=== PATIENT | female | born 1990 | race African-American/Black ===

== ENCOUNTER 2016-05-24 08:31 | Emergency (ER) | payer OTHER ==
[2016-05-24 08:41] VITALS: BP 121/89
[2016-05-24] MEDS ORDERED: MORPHINE IM ONE (09:23)
[2016-05-24] MEDS ORDERED: ZOFRAN IM ONE (09:23)
[2016-05-24] MEDS ORDERED: BICILLIN L-A IM ONE (09:23)
--- NOTE | 2016-05-24 09:28 | PROVIDER DOCUMENTATION ---
HPI-EENT General - General Chief Complaint: Toothache Stated Complaint: TOOTHACHE Time Seen by Provider: 05/24/16 09:02 Source: patient Allergies/Adverse Reactions: Patient Allergies Allergy/AdvReac Type Severity Reaction Status Date / Time ibuprofen Allergy Intermediate SWELLING Verified 06/02/15 14:34 Sulfa (Sulfonamide Allergy Intermediate SWELLING Verified 06/02/15 14:34 Antibiotics) latex Allergy Mild ITCHING Verified 06/02/15 14:34 Home Medications: Home Medication List Medication Instructions Recorded Confirmed Last Taken Type Duloxetine [Cymbalta] 60 mg PO DAILY #30 capsule 02/01/15 06/02/15 06/02/15 10: 00 Rx Olanzapine [Zyprexa] 15 mg PO QHS #30 tablet 02/01/15 06/02/15 06/02/15 10:00 Rx Clonazepam [Klonopin] 1 mg PO BID 06/02/15 06/02/15 06/02/15 10:00 History Cyanocobalamin (Vitamin B-12) 2,500 mcg PO DAILY 06/08/15 06/08/15 06/08/15 History [Vitamin B12] Acetaminophen/Diphenhydramine 1 each PO Q6-8H PRN PRN #30 tablet 05/24/16 Unknown Rx [Percogesic 325-12.5 mg Tablet] Amoxicillin [Amoxil] 500 mg PO BID #14 capsule 05/24/16 Unknown Rx Benzocaine 20% Gel [Orajel Maximum 1 applicatn TOP 4XDAY PRN PRN #1 05/24/[address] 20% Gel] tube - History of Present Illness-EENT General Nature of Presenting Problem: This pt presents today c complaints of toothache to the R upper jaw X 3 days. She reports that an "abscess busted" 2 days ago and she has had pain since that time. No fever, chills, n/v/d. no facial cellulitis or swelling. No tongue or throat swelling. EENT Location: reports: dental Quality of Pain: reports: aching Severity: reports: moderate Onset/Duration: reports: 3 days ago Timing: reports: still present Prearrival Treatment: Initiated no prearrival treatment Associated Symptoms: reports: tooth pain Similar Symptoms Previously?: Yes Recently seen or treated by another doctor?: No Review of Systems - Adult - REVIEW OF SYSTEMS - ADULT Constitutional: reports: no symptoms reported. denies: chills, fatique Eyes: reports: no symptoms reported. denies: discharge, dry eyes Ears, Nose, Mouth & Throat: reports: see HPI, mouth/dental pain. denies: ear discharge, ear pain Cardiovascular: reports: no symptoms reported. denies: chest pain, edema Respiratory: reports: no symptoms reported. denies: chronic cough, dyspnea on exertion Gastrointestinal: reports: no symptoms reported. denies: abdominal pain, hematemesis Genitourinary: reports: no symptoms reported. denies: dysuria, discharge Musculoskeletal: reports: no symptoms reported. denies: bone pain, back pain Integumentary: reports: no symptoms reported. denies: hives, hair loss Neurological: reports: no symptoms reported. denies: ataxia, dizziness/vertigo Psychiatric: reports: no symptoms reported. denies: anxiety, anti-depressant use Endocrine: reports: no symptoms reported Hematologic/Lymphatic: reports: no symptoms reported Allergic/Immunologic: reports: no symptoms reported All Other Systems: Reviewed and Negative Past History - Adult - PAST MEDICAL HISTORY-ADULT Review of Records: reports: Old Records Reviewed, Nursing Assessment Review, Medications Reviewed, Social history reviewed & non-contributory. Major Childhood Illnesses: reports: history unknown Cardiovascular: reports: denies history Respiratory: reports: asthma Gastrointestinal: reports: denies history Obstetrical/Gynecological: reports: other (EDC September 05) Genitourinary: reports: denies history Musculoskeletal: reports: other (hx of back pain) Neurological: reports: denies history Psychiatric: reports: depression Endocrine/Immune: reports: denies history Other Conditions: reports: denies history - PRIOR SURGERIES/PROCEDURES Surgical/Procedure History: reports: none - IMMUNIZATION STATUS Childhood Immunizations: UTD Flu Vaccine: See Nurse Assessment Physical Exam- EENT - Physical Exam EENT Initial Vital Signs Reviewed: Yes General Appearance: appears well, alert, no apparent distress Eye Exam: bilateral eye: normal inspection, PERRL, EOMI Nasal Exam: normal inspection Throat Exam: pharynx normal, dental tenderness. negative: excessive drooling, pharynx tenderness, tonsillar exudate, tonsillar swelling Mouth,Throat: 1 - pain; no abscess noted Neck: non-tender, full range of motion, supple, normal inspection. negative: limited range of motion, lymphadenopathy, meningismus Respiratory: chest non-tender, lungs clear, normal breath sounds, no pleuratic chest pain, no respiratory distress, no accessory muscle use Cardiovascular: normal peripheral pulses, regular rate, rhythm, no edema, no gallop, no JVD, no murmur Abdominal Exam: normal bowel sounds, non tender, soft Back Exam: normal inspection Extremity: normal range of motion, non-tender, normal gait, normal inspection Integumentary: normal color, normal turgor, warm/dry Neurologic: grossly normal, no motor/sensory deficits Psych/Mental Status: normal mood/affect, normal thought content, normal thought process, oriented x 3 Progress - PLAN OF CARE/RESULTS Progress/Plan/Lab Results: Orders Category Date Time Status Morphine Med 05/24/16 09:23 Discontinued 4 mg IM NOW ONE Ondansetron [Zofran] Med 05/24/16 09:23 Discontinued 4 mg IM NOW ONE Penicillin G Benzathine [Bicillin l-A] Med 05/24/16 09:23 Discontinued 1,200,000 unit IM NOW ONE Vital Signs Temp Pulse Resp BP Pulse Ox 05/24/16 08:39 99.0 F 80 18 121/89 100 ibuprofen Allergy (Intermediate, Verified 06/02/15 14:34) SWELLING Sulfa (Sulfonamide Antibiotics) Allergy (Intermediate, Verified 06/02/15 14:34) SWELLING latex Allergy (Mild, Verified 06/02/15 14:34) ITCHING Duloxetine [Cymbalta] 60 mg PO DAILY #30 capsule 02/01/15 Olanzapine [Zyprexa] 15 mg PO QHS #30 tablet 02/01/15 Clonazepam [Klonopin] 1 mg PO BID 06/02/15 Cyanocobalamin (Vitamin B-12) [Vitamin B12] 2,500 mcg PO DAILY 06/08/15 Departure - Departure Time of Disposition Order: 09:28 DIAGNOSIS: Pain, dental Disposition: HOME 01 Certified Medical Emergency: Urgent Condition: Good Additional Instructions: Take medication as prescribed. Follow up with a dentist. ED Follow Up Instructions: You have been treated by a care provider in the Emergency Department. These instructions are being provided to you so you can have an understanding of how to care for yourself upon discharge. Upon discharge from the Emergency Department, you are responsible for making arrangements for follow-up care by a physician of your choice. Take all prescribed medications as directed. Return to the Emergency Department immediately for any new or worsening symptoms. You may call the Physician Referral phone number at [phone] to obtain a list of Physicians who are taking new patients. Prescriptions: Amoxicillin [Amoxil] 500 mg PO BID #14 capsule Benzocaine 20% Gel [Orajel Maximum St 20% Gel] 1 applicatn TOP 4XDAY PRN PRN #1 tube PRN Reason: Pain Acetaminophen/Diphenhydramine [Percogesic 325-12.5 mg Tablet] 1 each PO Q6-8H PRN PRN #30 tablet PRN Reason: Pain Referrals: Eugenia Murillo, DIANE [Primary Care Provider] - Jair Dent DMD [DENTISTRY] - Attestation - Physician/ LORI Attestation Patient care was provided by Advanced Practice Provider:: Yes Advanced Practice Provider:: Elia Zamora Advanced Practice Provider documentation review:: The Mid-level provider documentation, treatment plan and medical decision making was reviewed by the physician who agrees with all treatment and medical decision making by the MLP.
== END 2016-05-24 10:10 | disposition home or self-care (01) ==
LOC: ED 08:31
DX: K08.89 Other specified disorders of teeth and supporting structures (principal); F32.9 Major depressive disorder, single episode, unspecified; Z79.899 Other long term (current) drug therapy
CPT/HCPCS: 96372; J0561; J2270; J2405

== ENCOUNTER 2018-10-22 17:28 | Inpatient (IN) ==
[2018-10-22 18:03] LABS: BASO# 0.03 X1000 (0.0-0.2); BASO% 0.6 % (0.0-0.8); EOS# 0.16 X1000 (0.0-0.7); EOS% 3.1 % (0.0-10.0); HEMATOCRIT 34.3 % (37.0-47.0); HEMOGLOBIN 11.2 g/dL (12.0-16.0); IMM GRAN# 0.01 X1000 (0.0-0.04); IMM GRAN% 0.2 % (0.0-0.5); LYMPH# 2.24 X1000 (1.2-3.4); LYMPH% 43.4 % (20.5-51.1); MCH 28.8 PG (27-31); MCHC 32.7 g/dL (33-37); MCV 88.2 FL (81-99); MONO# 0.28 X1000 (0.11-0.59); MONO% 5.4 % (1.7-9.3); MPV 10.2 FL (7.4-10.4); NEUT# 2.44 X1000 (1.4-6.5); NEUT% 47.3 % (42.2-75.2); PLT 240 X1000 (130-400); RBC 3.89 XMIL (4.2-5.4); RDW 12.5 % (11.5-14.5); WBC 5.16 X1000 (4.8-10.8)
[2018-10-22 18:20] LABS: AGAP 8; ALBUMIN 4.1 g/dL (3.5-5.0); ALKALINE PHOSPHATASE 39 U/L (32-104); BUN 8 mg/dL (8-22); CALCIUM 8.6 mg/dL (8.8-10.2); CHLORIDE 106 mmol/L (98-107); COSMO 277; CREATININE 0.7 mg/dL (0.5-0.9); ESTIMATED GFR > 60; GLUCOSE 94 mg/dL (70-104); GOT 14 U/L (10-30); GPT 9 U/L (10-36); POTASSIUM 3.7 mmol/L (3.5-5.1); SODIUM 140 mmol/L (136-145); TCO2 26 mmol/L (25-35); TOTAL PROTEIN 7.1 g/dL (6.3-8.3)
[2018-10-22 18:26] LABS: BILIRUBIN URINE NEGATIVE (NEGATIVE); BLOOD URINE TRACE (NEGATIVE); GLUCOSE URINE NEGATIVE (NEGATIVE); KETONE URINE NEGATIVE (NEGATIVE); LEUKOCYTES URINE TRACE (NEGATIVE); NITRITE URINE NEGATIVE (NEGATIVE); PROTEIN URINE TRACE mg/dL (NEGATIVE); SP GRAVITY URINE 1.015; UROBILINOGEN URINE 4 mg/dL
[2018-10-22 18:27] LABS: CLARITY CLEAR (CLEAR); COLOR YELLOW
[2018-10-22 18:37] LABS: URINE SOURCE CLEAN CATCH
[2018-10-22 18:38] LABS: URINE BACTERIA 2+ /HFP; URINE EPITHELIAL CELLS <10 /HPF (<10); URINE RBC <10 /HPF (<10); URINE WBC <10 /HPF (<10)
--- NOTE | 2018-10-22 20:38 | Diag Imaging Result Doc PS360 ---
EXAM: US OBS COMPLETE < 14 WKS 10/22/2018 HISTORY: abd pain, TECHNIQUE: Endovaginal scan. COMMENT: There is an apparent left tubal or ovarian ectopic gestational sac with fluid debris level. There is a fetus with a crown-rump length consistent with a gestational age of seven weeks three days +/- four days. There is no free pelvic fluid. There is no detectable cardiac activity. IMPRESSION: Left tubal ectopic with nonviable fetus. The findings were discussed with Iris Frost MD at 10/22/2018 8:36 PM. Electronically signed by Jonathan Ledezma 10/22/2018 8:36 PM
--- NOTE | 2018-10-22 21:36 | OB/GYN PROGRESS NOTE ---
Progress Note OB - . OB Progress Note: Vital Signs - 24 hr 10/22/18 17:35 Temperature 98 F Pulse Rate 91 H Respiratory Rate 18 Blood Pressure 118/70 O2 Sat by Pulse Oximetry 99 Bedside Urine ED: Urine Bedside Start: 10/22/18 17:41 Freq: ORDERED Status: Active Protocol: Activity Type Activity Date Activity User E-Sign Co-Sign Detail Recorded Client Recorded Date Recorded By Document 10/22/18 17:45 [id number] 10/22/18 17:46 [id number] 10/22/18 17:45 Point of Care [Bedside Point of Care] -Lot # [id number] - Results Positive -Control Line Visible? Yes Laboratory Results - last 24 hr 10/22/18 10/22/18 10/22/18 17:40 17:50 17:50 WBC 5.16 RBC 3.89 L Hgb 11.2 L Hct 34.3 L MCV 88.2 MCH 28.8 MCHC 32.7 L RDW Std Deviation 12.5 Plt Count 240 MPV 10.2 Immature Gran % (Auto) 0.2 Neut % (Auto) 47.3 Lymph % (Auto) 43.4 [place] % (Auto) 5.4 Eos % (Auto) 3.1 Baso % (Auto) 0.6 Immature Gran # (Auto) 0.01 Neut # (Auto) 2.44 Lymph # (Auto) 2.24 [place] # (Auto) 0.28 Eos # (Auto) 0.16 Baso # (Auto) 0.03 Sodium 140 Potassium 3.7 Chloride 106 Carbon Dioxide 26 Anion Gap 8 BUN 8 Creatinine 0.7 Estimated GFR/1.73 m2 > 60 BUN/Creatinine Ratio 11 Glucose 94 Calculated Osmolality 277 Calcium 8.6 L Total Bilirubin 0.20 AST 14 ALT 9 L Alkaline Phosphatase 39 Total Protein 7.1 Albumin 4.1 Globulin 3.0 Albumin/Globulin Ratio 1.0 Ser , Semi-Qnt Urine Source CLEAN CATCH Urine Color YELLOW Urine Clarity CLEAR Urine pH 7.0 Ur Specific [place] 1.015 Urine Protein TRACE A Urine Ketones NEGATIVE Urine Blood TRACE Urine Nitrite NEGATIVE Urine Bilirubin NEGATIVE Urine Urobilinogen 4 Urine Microscopic RBC <10 Urine WBC TRACE A Urine Microscopic WBC <10 Ur Epithelial Cells <10 Urine Bacteria 2+ Urine Glucose NEGATIVE Blood Type ABO/Rh Screen RhIG Candidate? 10/22/18 10/22/18 10/22/18 17:50 17:50 17:50 WBC RBC Hgb Hct MCV MCH MCHC RDW Std Deviation Plt Count MPV Immature Gran % (Auto) Neut % (Auto) Lymph % (Auto) [place] % (Auto) Eos % (Auto) Baso % (Auto) Immature Gran # (Auto) Neut # (Auto) Lymph # (Auto) [place] # (Auto) Eos # (Auto) Baso # (Auto) Sodium Potassium Chloride Carbon Dioxide Anion Gap BUN Creatinine Estimated GFR/1.73 m2 BUN/Creatinine Ratio Glucose Calculated Osmolality Calcium Total Bilirubin AST ALT Alkaline Phosphatase Total Protein Albumin Globulin Albumin/Globulin Ratio Ser , Semi-Qnt 6138.0 Urine Source Urine Color Urine Clarity Urine pH Ur Specific [place] Urine Protein Urine Ketones Urine Blood Urine Nitrite Urine Bilirubin Urine Urobilinogen Urine Microscopic RBC Urine WBC Urine Microscopic WBC Ur Epithelial Cells Urine Bacteria Urine Glucose Blood Type Cancelled ABO/Rh A NEGATIVE Screen NEGATIVE RhIG Candidate? YES 28 yo BF. at 6.6 by LMP - OB was called by ER for ECTOPIC PREG. U/s L adnexal mass - fetus and bhcg over 6000. Pt came into ER with c/o LLQ pain that has been there for a couple of days. Pain is not severe but bothersome. Pt state she got a pos preg test and was told that she was 5 weeks by [facility]. No vag bleeding. No urinary or bowel issues. No SOB, CP or leg pain. PMH - Anxiety/Depressions, Asthma PSHx - None Pob hx - 3 FT - uncomplicated PGYN - No STD, LMP 09/05/18 FH - NC SH - occ smoker Allergies: Ibuprophen, Sulfa, Latex Meds - Amoxicillin, Prednisone VSS AF Gen - Pt in no apparent distress A&0 x 3 ABD, sof, NT, ND Extreme - no CCS A/P ECTOPIC PREG at 7 weeks by U/s - No FCA. Not a good candidate for MTX. RBA d/w pt. Will set up LSC removal of ectopic. Will make NPO after MN. Pt is not acute at this time [facility]
[2018-10-22] MEDS ORDERED: NS 1,000 ML IV ONE ×2 (22:52→22:53)
--- NOTE | 2018-10-22 22:54 | PROVIDER DOCUMENTATION ---
This chart was entered by Lauren Madrid Scribe, acting as scribe for Iris Frost MD. HPI-Female /OB/Breast - General Chief Complaint: Female Stated Complaint: 7WKS / ABD / SIDE PAIN Time Seen by Provider: 10/22/18 20:40 Source: reports: patient Allergies/Adverse Reactions: Patient Allergies Allergy/AdvReac Type Severity Reaction Status Date / Time ibuprofen Allergy Intermediate SWELLING Verified 02/09/18 07:25 Sulfa (Sulfonamide Allergy Intermediate SWELLING Verified 02/09/18 07:25 Antibiotics) latex Allergy Mild ITCHING Verified 02/09/18 07:25 Home Medications: Home Medication List Medication Instructions Recorded Confirmed Last Taken Type Norethindrone [Ortho Micronor] 0.35 mg PO DAILY 07/16/17 02/09/18 07/15/17 History Amoxicillin 500 mg PO TID #30 cap 02/09/18 Unknown Rx Prednisone 20 mg PO BID #10 tab 02/09/18 Unknown Rx - History of Present Illness-Female /OB Nature of Presenting Problem: pt is a 28 yr old female presenting with 1 week complaint of LLQ pain, pt reports she is approx 5 weeks , seen by [facility]. pt denies any vaginal bleeding. pt reports LMP 09/05/18, . Does patient report she is ?: Yes Location of complaint: reports: LLQ Radiation: reports: none Quality of Pain: reports: cramping, sharp Severity in ED: reports: moderate Onset/Duration: reports: 1 week ago Timing: reports: still present, getting worse Vaginal Symptoms: denies: abnormal bleeding Vaginal Bleeding Amount: None Urinary Symptoms: reports: no symptoms. denies: dysuria, frequency, low back pain Related Symptoms: reports: abdominal pain. denies: vaginal bleeding Sexual intercourse history: reports: Less Than 2 Months Ago Modifying Factors: improves with: nothing Associated Symptoms: denies: back/neck pain, constipation, diarrhea, fever/chills, nausea, vomiting Similar Symptoms Previously?: Yes Recently seen or treated by another doctor?: Yes (seen at [facility]) - LMP/ History Menstrual Status: currently LMP: 09/05/18 : 5 Para: 3 Age estimated by:: by dates CURRENT Problems: none Review of Systems - Adult - REVIEW OF SYSTEMS - ADULT Constitutional: denies: chills, fever Eyes: reports: no symptoms reported Ears, Nose, Mouth & Throat: reports: no symptoms reported Cardiovascular: reports: no symptoms reported Respiratory: reports: no symptoms reported Gastrointestinal: reports: abdominal pain. denies: diarrhea, nausea, vomiting Genitourinary: denies: dysuria, frequency, flank pain Musculoskeletal: denies: back pain Integumentary: reports: no symptoms reported Neurological: denies: dizziness/vertigo, headache/migraines Psychiatric: reports: no symptoms reported Endocrine: reports: no symptoms reported Hematologic/Lymphatic: reports: no symptoms reported Allergic/Immunologic: reports: no symptoms reported All Other Systems: Reviewed and Negative Past History - Adult - PAST MEDICAL HISTORY-ADULT Review of Records: reports: Old Records Reviewed, Nursing Assessment Review, Medications Reviewed, Social history reviewed & non-contributory. Major Childhood Illnesses: reports: history unknown Cardiovascular: reports: denies history Respiratory: reports: asthma Gastrointestinal: reports: denies history Obstetrical/Gynecological: reports: other (EDC September 05) Genitourinary: reports: denies history Musculoskeletal: reports: other (hx of back pain) Neurological: reports: denies history Psychiatric: reports: depression Endocrine/Immune: reports: denies history Other Conditions: reports: denies history - PRIOR SURGERIES/PROCEDURES Surgical/Procedure History: reports: none - IMMUNIZATION STATUS Childhood Immunizations: UTD Flu Vaccine: See Nurse Assessment - FAMILY HISTORY Family History: reviewed, not pertinent - SOCIAL HISTORY Smoking: cigarettes Provider spent 3-5 mins advising pt. on dangers of tobacco.: Discussed manners to quit use, and f/u contacts for add'l counseling. Substance Use: alcohol Alcohol Use Frequency: occasionally Living Situation: family Physical Exam-General - PHYSICAL EXAM-ADULT Initial Vital Signs Reviewed: Yes - CONSTITUTIONAL General Appearance: appears well, alert, no apparent distress, obese - EYES Eyes: PERRL/EOMI - HEAD, EARS, NOSE, MOUTH & THROAT HENMT: normocephalic/atraumatic, moist mucous membranes - NECK Neck: non-tender, full range of motion, supple, normal inspection - RESPIRATORY Respiratory: chest non-tender, lungs clear, normal breath sounds - CARDIOVASCULAR Cardiovascular: normal peripheral pulses, regular rate, rhythm - GASTROINTESTINAL (ABDOMEN) Abdominal Exam: normal bowel sounds, soft, tenderness (LLQ tenderness) - LYMPHATIC Lymphatic: no adenopathy - MUSCULOSKELETAL Back Exam: normal inspection, no CVA tenderness, no vertebral tenderness Extremity: normal range of motion, non-tender, normal gait, normal inspection - SKIN Integumentary: normal color, normal turgor, warm/dry - NEUROLOGIC Neurologic: grossly normal - PSYCHIATRIC Psych/Mental Status: normal mood/affect Progress - PLAN OF CARE/RESULTS Progress/Plan/Lab Results: Vital Signs - 8 hr 10/22/18 17:35 10/22/18 22:10 Temperature 98 F 98.8 F Pulse Rate 91 H 73 Respiratory Rate 18 18 Blood Pressure 118/70 115/81 O2 Sat by Pulse Oximetry 99 99 Bedside Urine ED: Urine Bedside Start: 10/22/18 17:41 Freq: ORDERED Status: Active Protocol: Activity Type Activity Date Activity User E-Sign Co-Sign Detail Recorded Client Recorded Date Recorded By Document 10/22/18 17:45 [id number] 10/22/18 17:46 [id number] 10/22/18 17:45 Point of Care [Bedside Point of Care] -Lot # [id number] - Results Positive -Control Line Visible? Yes Laboratory Results - last 24 hr 10/22/18 10/22/18 10/22/18 17:40 17:50 17:50 WBC 5.16 RBC 3.89 L Hgb 11.2 L Hct 34.3 L MCV 88.2 MCH 28.8 MCHC 32.7 L RDW Std Deviation 12.5 Plt Count 240 MPV 10.2 Immature Gran % (Auto) 0.2 Neut % (Auto) 47.3 Lymph % (Auto) 43.4 [place] % (Auto) 5.4 Eos % (Auto) 3.1 Baso % (Auto) 0.6 Immature Gran # (Auto) 0.01 Neut # (Auto) 2.44 Lymph # (Auto) 2.24 [place] # (Auto) 0.28 Eos # (Auto) 0.16 Baso # (Auto) 0.03 Sodium 140 Potassium 3.7 Chloride 106 Carbon Dioxide 26 Anion Gap 8 BUN 8 Creatinine 0.7 Estimated GFR/1.73 m2 > 60 BUN/Creatinine Ratio 11 Glucose 94 Calculated Osmolality 277 Calcium 8.6 L Total Bilirubin 0.20 AST 14 ALT 9 L Alkaline Phosphatase 39 Total Protein 7.1 Albumin 4.1 Globulin 3.0 Albumin/Globulin Ratio 1.0 Ser , Semi-Qnt Urine Source CLEAN CATCH Urine Color YELLOW Urine Clarity CLEAR Urine pH 7.0 Ur Specific [place] 1.015 Urine Protein TRACE A Urine Ketones NEGATIVE Urine Blood TRACE Urine Nitrite NEGATIVE Urine Bilirubin NEGATIVE Urine Urobilinogen 4 Urine Microscopic RBC <10 Urine WBC TRACE A Urine Microscopic WBC <10 Ur Epithelial Cells <10 Urine Bacteria 2+ Urine Glucose NEGATIVE Blood Type ABO/Rh Screen RhIG Candidate? 10/22/18 10/22/18 10/22/18 17:50 17:50 17:50 WBC RBC Hgb Hct MCV MCH MCHC RDW Std Deviation Plt Count MPV Immature Gran % (Auto) Neut % (Auto) Lymph % (Auto) [place] % (Auto) Eos % (Auto) Baso % (Auto) Immature Gran # (Auto) Neut # (Auto) Lymph # (Auto) [place] # (Auto) Eos # (Auto) Baso # (Auto) Sodium Potassium Chloride Carbon Dioxide Anion Gap BUN Creatinine Estimated GFR/1.73 m2 BUN/Creatinine Ratio Glucose Calculated Osmolality Calcium Total Bilirubin AST ALT Alkaline Phosphatase Total Protein Albumin Globulin Albumin/Globulin Ratio Ser , Semi-Qnt 6138.0 Urine Source Urine Color Urine Clarity Urine pH Ur Specific [place] Urine Protein Urine Ketones Urine Blood Urine Nitrite Urine Bilirubin Urine Urobilinogen Urine Microscopic RBC Urine WBC Urine Microscopic WBC Ur Epithelial Cells Urine Bacteria Urine Glucose Blood Type Cancelled ABO/Rh A NEGATIVE Screen NEGATIVE RhIG Candidate? YES Orders Category [facility] Routine AdmDCTranf 10/22/18 22:57 Active ED: Urine Bedside ORDERED Care 10/22/18 17:41 Active Resuscitation Status Routine Care 10/22/18 22:56 Ordered Vital Signs Order Q 8-HR .ASSESS Care 10/22/18 22:59 Active NPO Diet 10/22/18 22:52 Active US OBS COMPLETE < 14 WKS [US] Stat Exams 10/22/18 19:18 Completed CBC WITH DIFF [HEME] Stat Lab 10/22/18 17:50 Completed COMPREHENSIVE METABOLIC PANEL [CHEM] Stat Lab 10/22/18 17:50 Completed BLEED SCREEN [BBK] Stat Lab 10/22/18 17:50 Completed QUANT TEST Stat Lab 10/22/18 17:50 Completed RHOGAM WORKUP [BBK] Stat Lab 10/22/18 17:50 Completed RHOGAM [BBK] Stat Lab 10/22/18 17:[address] W/POSS RFLX CULT [URINALYSIS] Stat Lab 10/22/18 17:40 Completed URINE CULTURE [RM] Routine Lab 10/22/18 18:38 Received 0.9% Sodium Chloride Inj [Ns] 1,000 ml Med 10/22/18 22:52 Active IV 125 mls/hr 0.9% Sodium Chloride Inj [Ns] 1,000 ml Med 10/22/18 22:53 Active IV 999 mls/hr Morphine Med 10/22/18 22:59 Ordered 4 mg IV Q4H PRN PRN Ondansetron [Zofran] Med 10/22/18 22:59 Ordered 4 mg IV Q4H PRN PRN Transfer/Admit Order [TRANSFER] Routine Transfer 10/22/18 22:[address] Lee evaluated the patient and would like her transferred to [facility] for surgery in the AM given that she is stable and non-emergent. Orders placed for transfer. Patient not asking for pain medications and feels comfortable at this time. Continue to monitor until transferred Result Diagrams: 10/22/18 17:50 10/22/18 17:50 - ULTRASOUND (By Radiology) 1 US Study: Pelvic, Transvaginal, other (ob) Impression: Abnormal ( Signed EXAM: US OBS COMPLETE < 14 WKS 10/22/2018 HISTORY: abd pain, TECHNIQUE: Endovaginal scan. COMMENT: There is an apparent left tubal or ovarian ectopic gestational sac with fluid debris level. There is a fetus with a crown-rump length consistent with a gestational age of seven weeks three days +/- four days. There is no free pelvic fluid. There is no detectable cardiac activity. IMPRESSION: Left tubal ectopic with nonviable fetus. The findings were discussed with Iris Frost MD at 10/22/2018 8:36 PM. Electronically signed by Jonathan Ledezma 10/22/2018 8:36 PM 10/22/182035 Interpreting Physician: Jonathan Ledezma MD Dictated Date/Time: 10/22/182029), Discussed w/Radiology - CONSULTS/PCP/HOSPITALIST Notification #1 *Consult/PCP/Hospitalist*: Dr Lee Time Discussed: 20:50 Reason/Comments: discussed plan of care regarding ultrasound findings/pt admission Consult Disposition: Will see in ED Departure - Departure Date of Disposition Decision: 10/22/18 Time of Disposition Decision: 21:00 DIAGNOSIS: Ectopic , tubal Qualifiers: Intrauterine status: without intrauterine Laterality: left Qualified Code(s): O00.102 - Left tubal without intrauterine Disposition: ADMITTED INPATIENT 09 Certified Medical Emergency: Emergent Condition: Stable Referrals and Follow-Ups: None,PCP [Primary Care Provider] - - Critical Care Note This patient required my direct & personal management of CC.: No Attestation - Physician/ LORI Attestation Patient care was provided by Advanced Practice Provider:: No The physician spent face to face time with patient:: Yes Advanced Practice Provider documentation review:: Supervising physician onsite and consulted in the evaluation and care of this patient. The physician did have a face to face encounter with the patient. This chart was documented by the indicated scribe, (Lauren Madrid, Andrae) and accurately reflects the services I performed and decisions made by me, Iris Berry i, MD, as attested by the provider's signature.
[2018-10-22] MEDS ORDERED: MORPHINE IV PRN (22:59)
[2018-10-22] MEDS ORDERED: ZOFRAN IV PRN (22:59)
[2018-10-23] MEDS ORDERED: QUELICIN (DOSE) ONE (05:43)
[2018-10-23] MEDS ORDERED: XYLOCAINE-MPF 2% ONE (05:43)
[2018-10-23] MEDS ORDERED: DIPRIVAN 1% ONE (05:44)
[2018-10-23] MEDS ORDERED: SENSORCAINE-MPF 0.5%/EPI 1:200,000 ONE (06:12)
[2018-10-23] MEDS ORDERED: LR 1,000 ML ONE (06:12)
[2018-10-23] MEDS ORDERED: ZEMURON ONE (06:34)
[2018-10-23] MEDS ORDERED: ZOFRAN ONE (06:47)
[2018-10-23] MEDS ORDERED: DECADRON ONE (06:47)
[2018-10-23] MEDS ORDERED: NEOSTIGMINE ONE (07:07)
[2018-10-23] MEDS ORDERED: ROBINUL ONE (07:07)
[2018-10-23] MEDS: DILAUDID ONE ×3 (07:25→09:47)
[2018-10-23] MEDS: NORCO-7.5 ONE ×2 (07:45→09:47)
[2018-10-23] MEDS ORDERED: NORCO-7.5 PO PRN (07:58)
[2018-10-23 11:47] VITALS: BP 104/61
--- NOTE | 2018-10-25 09:12 | OPERATIVE NOTE ---
PROCEDURE DATE : 10/23/2018 PREOPERATIVE DIAGNOSIS: Left ectopic . POSTOPERATIVE DIAGNOSIS: Left ectopic . PROCEDURE PERFORMED: Laparoscopic left salpingectomy. SURGEON: Tasia Lee MD TALENT RECRUITER: None. ANESTHESIA: General. ESTIMATED BLOOD LOSS: 25 mL. COMPLICATIONS: None. ORGANS REMOVED: Left tube. PATHOLOGY: Left tube. FINDINGS: Left tube with large ectopic . Normal uterus. Normal right tube. Normal ovaries. INDICATION: This is a 28-year-old black female who came to the emergency room with a positive test and left lower quadrant pain. Ultrasound was done that showed a left ectopic approximately 7 weeks, no cardiac activity. No in the uterus. Beta was approximately 6000. The patient was not a good candidate for methotrexate. DESCRIPTION OF PROCEDURE: The patient was taken to the operating room where she was prepped and draped in a normal sterile fashion in a dorsal lithotomy position. A bivalve speculum was then placed in the patient's vagina, and the anterior lip of the cervix was grasped with a single-tooth tenaculum. A Hulka tenaculum was then placed in the patient's uterus. The single-tooth tenaculum was then removed. The speculum was then removed. The Ingram was placed into the patient's bladder. Attention was turned to the abdomen where Marcaine with epinephrine was injected into the potential trocar site. A 5 mm infraumbilical skin incision was made with a scalpel. A trocar 5 mm was placed into the patient's abdomen. Placement was confirmed using the laparoscope. The abdomen was insufflated using CO2 gas until a pneumoperitoneum was reached. The pelvis was inspected with the findings noted above after the patient was placed in Trendelenburg. In the left lower quadrant, an 11 mm incision was then made, and a trocar was placed under direct visualization. Suprapubically, a 5 mm incision was then made, and a trocar was placed under direct visualization. Left tube was then tented up, and due to the encompassing the whole tube, the tube was then removed using a LigaSure device. The mesosalpinx was cauterized and cut using the LigaSure. An EndoPass was then placed into the patient's abdomen, and the tube and ectopic were removed. The pelvis was then irrigated and cleared of all clots and debris. Excellent hemostasis was noted. All instruments and gas were removed from the patient's abdomen. The skin was closed using 4-0 Monocryl. All instruments were removed from the patient's vagina. Sponge, lap and needle counts were correct x2. The patient was taken to the recovery room in stable condition.
== END 2018-10-23 14:20 | disposition home or self-care (01) | DRG 819 ==
LOC: P.ED 17:28 → 4N 23:22
PROVIDERS: ADMIT Obstetrics & Gynecology; ATTEND Obstetrics & Gynecology